=== PATIENT | female | born 1960 | race Asian ===

== ENCOUNTER 2024-01-26 06:55 | Day surgery (SDC) | payer BC ==
[2024-01-25 09:26] VITALS: BMI 23.6
[2024-01-26] MEDS ORDERED: CEFAZOLIN 2 GM VIAL ONE (08:23)
[2024-01-26] MEDS ORDERED: Bupivacaine PF 0.5% 30 ML VIAL ONE (08:23)
[2024-01-26] MEDS ORDERED: EPINEPHrine 1 MG/ML VIAL ONE (08:23)
[2024-01-26] MEDS ORDERED: Lidocaine 2% PF 5 ML VIAL ONE (08:29)
[2024-01-26] MEDS ORDERED: Dexamethasone 4 mg/ml Vial ONE (08:29)
[2024-01-26] MEDS ORDERED: Ondansetron PF 4 MG/2 ML Vial ONE (08:29)
[2024-01-26] MEDS ORDERED: PROPOFOL 20 ML ONE ×2 (08:29→11:09)
[2024-01-26] MEDS ORDERED: Ketorolac Tromethamine 30 MG (1 mL) VIAL ONE (08:29)
[2024-01-26] MEDS ORDERED: fentaNYL 50 mcg/mL 1 mL Vial ONE ×2 (08:29→09:54)
[2024-01-26] MEDS ORDERED: Famotidine/PF 20 mg/2ml Vial ONE (08:30)
[2024-01-26] MEDS ORDERED: PHENYLEPHRINE-NS 100 MCG/ML 10 ML SYRINGE ONE (09:01)
[2024-01-26] MEDS ORDERED: HYDROcodone/Acetaminophen 5/325 mg Tablet ONE (10:24)
[2024-01-26] MEDS ORDERED: Lidocaine 1% PF 5 ML VIAL ONE (10:42)
[2024-01-26] MEDS ORDERED: PROPOFOL 40 ML ONE (10:42)
== END 2024-01-26 11:20 | disposition home or self-care (01) ==
LOC: CSHSDC 06:55
PROVIDERS: ATTEND Surgery
PROC: 0HBT0ZZ Excision of Right Breast, Open Approach (ICD-10-PCS; principal; 2024-01-26)
DX: N60.91 Unspecified benign mammary dysplasia of right breast (principal); N60.81 Other benign mammary dysplasias of right breast; E78.00 Pure hypercholesterolemia, unspecified; I10 Essential (primary) hypertension; Z79.899 Other long term (current) drug therapy; Z88.2 Allergy status to sulfonamides
CPT/HCPCS: 88307; C1713; J0171; J0665; J1100; J1885; J2001; J2405; J2704; J3010; S0028